=== PATIENT | male | born 1995 | race African-American/Black ===

== ENCOUNTER 2017-07-29 11:22 | Emergency (ER) | payer OTHER ==
[~2017-07-29] VITALS: Ht 180.3 cm; Wt 68.2 kg
[2017-07-29 11:27] VITALS: BP 126/82
[2017-07-29] MEDS ORDERED: muscle relaxer PO (11:31)
[2017-07-29] MEDS ORDERED: ERYTHROMYCIN OPHTH OINT OU ONE (12:15)
[2017-07-29] MEDS ORDERED: ERYT5OPO OU (12:15)
== END 2017-07-29 12:49 | disposition home or self-care (01) ==
LOC: M ED 11:22
DX: H10.33 Unspecified acute conjunctivitis, bilateral (principal); Z79.899 Other long term (current) drug therapy